=== PATIENT | female | born 1985 | race Caucasian/White ===

== ENCOUNTER 2016-10-14 08:29 | Emergency (ER) | payer OTHER ==
[~2016-10-14] VITALS: Ht 162.6 cm; Wt 49.9 kg
[2016-10-14 08:34] VITALS: BP 129/73
[2016-10-14] MEDS ORDERED: KLONOPIN1 MG PO (08:36)
--- NOTE | 2016-10-14 08:37 | NUR ---
Patient ambulated to bed 03.
--- NOTE | 2016-10-14 08:40 | NUR ---
PATIENT PRESENTS TO ED WITH RIGHT HAND PAIN X2 DAYS S/P PUNCHING SOMEONE; DENIES N/V/D; SKIN IS PINK/WARM/DRY; AAOX4 WITH EVEN AND STEADY GAIT; LUNGS CLEAR BL; HR EVEN AND REGULAR; PT DENIES ANY FEVER, CP, SOB, OR COUGH AT THIS TIME; PATIENT STATES PAIN OF 7/10 AT THIS TIME; VSS; PATIENT POSITIONED FOR COMFORT; HOB ELEVATED; BEDRAILS UP X2; BED DOWN. ER MD MADE AWARE OF PT STATUS.
--- NOTE | 2016-10-14 08:47 | NUR ---
AAO TAKEN TO XRAY VIA WHEEL CHAIR
--- NOTE | 2016-10-14 08:54 | NUR ---
PT BACK FROM [facility] [place]
--- NOTE | 2016-10-14 09:07 | NUR ---
Dr. Deluna evaluating patient at bedside.
--- NOTE | 2016-10-14 09:44 | NUR ---
CD of XRAY was given to patient; authorization for disclosure was signed.
[2016-10-14 09:47] VITALS: BP 115/59
== END 2016-10-14 09:47 | disposition home or self-care (01) ==
LOC: MED 08:54
DX: S62.306A Unspecified fracture of fifth metacarpal bone, right hand, initial encounter for closed fracture (principal); R03.0 Elevated blood-pressure reading, without diagnosis of hypertension; W50.0XXA Accidental hit or strike by another person, initial encounter; Y93.89 Activity, other specified; Y92.89 Other specified places as the place of occurrence of the external cause; Y99.8 Other external cause status

== ENCOUNTER 2017-03-08 12:47 | Emergency (ER) | payer OTHER ==
[~2017-03-08] VITALS: Ht 162.6 cm; Wt 54.1 kg
[~2017-03-08 12:47] MED LIST: CLON1TAB PO
[2017-03-08 13:14] VITALS: BP 120/76
--- NOTE | 2017-03-08 13:30 | NUR ---
PATIENT PRESENTS TO ED WITH C/O LLE DULL PAIN X 2 DAYS---FROM [place] TO TOP SIDE OF [place] DENIES INJURY BUT ADMITS JOB IS REPEATED PULLING BOXES +2 POSTERIOR TIBIAL, +2 PEDAL PULSE, +2 POPLITEAL PULSES HX----DENIES RX----NONE; DENIES N/V/D; SKIN IS PINK/WARM/DRY; AAOX4 WITH EVEN AND STEADY GAIT; LUNGS CLEAR BL; HR EVEN AND REGULAR; PT DENIES ANY FEVER, CP, SOB, OR COUGH AT THIS TIME; PATIENT STATES PAIN OF 7/10 AT THIS TIME; VSS; PATIENT POSITIONED FOR COMFORT; HOB ELEVATED; BEDRAILS UP X2; BED DOWN. ER MD MADE AWARE OF PT STATUS.
[2017-03-08 14:01] LABS: BASOPHILS # (AUTO) 0.3 K/uL (0.00-0.22); EOSINOPHILS # (AUTO) 0.2 K/uL (0-0.4); HEMATOCRIT 40.2 % (36-48); LYMPHOCYTES # (AUTO) 1.4 K/uL (2.5-16.5); MEAN CORPUSCULAR HEMOGLOBIN 31 pg (27-31); MEAN CORPUSCULAR HGB CONC 32 g/dL (33-37); MEAN CORPUSCULAR VOLUME 95 fL (80-94); MONOCYTES # (AUTO) 0.4 K/uL (0.8-1.0); NEUTROPHILS # (AUTO) 1.8 K/uL (1.8-7.7); PLATELET COUNT (AUTO) 227 K/uL (140-450); RED BLOOD CELL COUNT(AUTO) 4.24 MIL/uL (4.20-5.40); RED CELL DISTRIBUTION WIDTH 12.6 % (11.6-13.7); WHITE BLOOD COUNT (AUTO) 4.1 K/uL (4.8-10.8)
[2017-03-08 14:21] LABS: ANION GAP 11.3 (8-16); CALCIUM 8.4 mg/dL (8.5-10.1); CARBON DIOXIDE 30.2 mmol/L (21-32); CHLORIDE 102 mmol/L (98-107); CREATININE 0.9 mg/dL (0.6-1.3); GFR ARICAN-AMERICAN 95 mL/min (>90); GFR NON ARICAN-AMERICAN 78 mL/min (>90); GLUCOSE 86 mg/dL (74-106); POTASSIUM 4.5 mmol/L (3.5-5.1); SODIUM SERUM 139 mmol/L (136-145); UREA NITROGEN, BLOOD 12 mg/dL (7-18)
[2017-03-08 14:22] LABS: INR 1.1 (0.8-1.2); PARTIAL THROMBOPLASTIN TIME 26.7 secs (22-35.6); PROTHROMBIN TIME 10.9 secs (10.8-13.4)
[2017-03-08 14:25] LABS: ALANINE AMINOTRANSFERASE 31 U/L (14-59); ALBUMIN 3.6 g/dL (3.4-5.0); ALKALINE PHOSPHATASE 50 U/L (46-116); ASPARTATE AMINOTRANSFERASE 29 U/L (15-37); CREATINE KINASE, TOTAL 399 U/L (26-192); TOTAL BILIRUBIN 0.4 mg/dL (0.0-1.0)
[2017-03-08 14:41] VITALS: BP 106/68
--- NOTE | 2017-03-08 14:41 | NUR ---
Patient discharged with v/s stable. Written and verbal after care instructions given and explained. Patient alert, oriented and verbalized understanding of instructions. [g ED.DCMODE] with [g ED.D/CMODE]. All questions addressed prior to discharge. ID band removed. Patient advised to follow up with PMD. Rx of [] given. Patient educated on indication of medication including possible reaction and side effects. Opportunity to ask questions provided and answered.
== END 2017-03-08 14:50 | disposition home or self-care (01) ==
LOC: MED 12:47
DX: S86.912A Strain of unspecified muscle(s) and tendon(s) at lower leg level, left leg, initial encounter (principal); F41.9 Anxiety disorder, unspecified; Z88.8 Allergy status to other drugs, medicaments and biological substances; X58.XXXA Exposure to other specified factors, initial encounter; Y93.89 Activity, other specified; Y92.89 Other specified places as the place of occurrence of the external cause; Y99.8 Other external cause status
CPT/HCPCS: 36415; 80053; 82550; 82553; 85025; 85379; 85610; 85730; 93971; 99285